=== PATIENT | male | born 1990 | race Caucasian/White ===

== ENCOUNTER 2021-04-25 09:11 | Emergency (ER) | payer MEDICAID, SELFPAY ==
--- NOTE | ~2021-04-25 | XR_ITS ---
EXAMINATION: XR CHEST CLINICAL INFORMATION: Palpitations COMPARISON: None TECHNIQUE: Frontal view of the chest was obtained. FINDINGS: No significant abnormality is noted involving the heart, lungs, mediastinum, bony thorax or soft tissues. XR/XR chest 1V IMPRESSION: Unremarkable examination.
--- NOTE | 2021-04-25 09:16 | ECG_ITS ---
Test Reason : DIZZINESS Blood Pressure : / mmHG Vent. Rate : 081 BPM Atrial Rate : 081 BPM P-R Int : 132 ms QRS Dur : 100 ms QT Int : 370 ms P-R-T Axes : 032 026 041 degrees QTc Int : 429 ms Normal sinus rhythm Incomplete right bundle branch block Borderline ECG No previous ECGs available Referred By: Yolanda Gregory Electronically Signed By:KARINA ROMANO
[2021-04-25 09:17] VITALS: BP 141/86; PULSE 113; RESP 18; TEMP 36.6; O2SAT 98; BMI 22.8
--- NOTE | 2021-04-25 09:19 | ED_ITS ---
HPI - Arrhythmia/Palpitations General Chief Complaint: Dizziness Stated Complaint: Rapid Heartrate Time Seen by Provider: 04/25/21 09:16 Source: patient Mode of arrival: ambulatory Limitations: no limitations History of Present Illness HPI narrative: rapid response called he told lab staff his HR was up and they found it to be 150 called RR complaint: rapid heart beat and palpitations Onset (ago): minute(s) Duration: constant Severity: moderate Context: other (pulled his back out at work today on R side when lifting, he was sent to work connection by his boss - got lost in hospital since work connection is closed, became nervous and felt his HR was up - hx of daily drinking, no CP/SOB) Associated symptoms: nausea and anxiety Related Data Previous Rx's Medication Instructions Recorded cyclobenzaprine 10 mg tablet 10 mg PO TID PRN #14 tab 04/25/21 ibuprofen 600 mg tablet 600 mg PO Q6H PRN #30 tab 04/25/21 lidocaine 4 % topical patch 1 patch TOPICAL DAILY PRN #10 ea 04/25/21 Allergies Allergy/AdvReac Type Severity Reaction Status Date / Time No Known Allergies Allergy Verified 04/25/21 09:16 Review of Systems Review of Systems: Constitutional : No Weight loss, No Fever, No Chills, No Fatigue, No Malaise ENT/Mouth : No sore throat, No Rhinorrhea Eyes: No Eye Pain, No Swelling, No Redness Cardiovascular : No Chest Pain, No SOB, No Dyspnea on Exertion, No Orthopnea, No Edema, pos Palpitations Respiratory : No Cough, No Sputum, No Wheezing Gastrointestinal : No Nausea, No Vomiting, No Diarrhea, No Constipation, No abdominal Pain, No Hematochezia, No Melena Genitourinary : No Dysuria, No Urinary Frequency, No Hematuria, Musculoskeletal : No joint pain, No Myalgias, No Joint Swelling, pos back pain Skin : No Skin Lesions, No rash Neuro : No Weakness, No Numbness, No Dizziness, No Headache Psych : pos Anxiety/Panic, No Depression Heme/Lymph: No Bruising, No Bleeding,No Lymphadenopathy Endocrine : No Polyuria, No Polydipsia All other systems reviewed and are negative [facility] Past Medical History Attestation statement: The following information was validated with the patient. Medical History (Updated 04/25/21 @ 11:27 by Yolanda Gregory DO) Anxiety Social History Social History (Updated 04/25/21 @ 09:22 by Yolanda Gregory DO) Alcohol intake: current Patient Tobacco Use Status: Tobacco use Unknown Advance Directives: No Advance Directives Information Provided: No Physical Exam Vital Signs: Vital Signs: Last Vital Signs Temp 97.8 F 04/25/21 09:17 Pulse 113 H 04/25/21 09:17 Resp 18 04/25/21 09:17 BP 141/86 H 04/25/21 09:17 Pulse Ox 98 04/25/21 09:17 Body Mass Index 22.8 Appearance: Alert. Oriented X3. No acute distress. Anxious Eyes: Pupils equal, round and reactive to light. ENT: Pharynx normal. Neck: Normal inspection. Neck supple. CVS: tachycardic heart rate and rhythm. Pulses normal. Respiratory: No respiratory distress. Breath sounds normal. Abdomen: Soft and nontender. Back: ttp along R paraspinal Skin: Skin warm and dry. Normal skin color. Normal skin turgor. Extremities: No lower extremity edema. No calf ttp Neuro: Oriented X 3. No motor deficit. No sensory deficit. Course Course Course Narrative: suspect more anxiety related at this time, HR down until you talk to him, will continue to observe feels better stable for DC MDM - Arrhythmia/Palpitations MDM Narrative Medical decision making narrative: 30 yo male with palpitations - did have R back strain at work today - at this time likely multifactorial could be pain, ETOH withdrawal, anxiety - labs, EKG, IV ativan and fluids ordered, dispo per results and findings. Lab Data Result diagrams: 04/25/21 09:37 04/25/21 09:37 Labs: Lab Results 04/25/21 04/25/21 04/25/21 Range/Units 09:37 09:37 09:37 WBC 5.6 (4.8-10.8) X10*3/uL RBC 4.62 (4.60-5.80) X10*6/uL Hgb 15.3 (14.0-18.0) g/dl Hct 44.1 (42-52) % MCV 95.5 (80-98) fL MCH 33.1 H (27.0-33.0) pg MCHC 34.7 (31.0-36.0) g/dl RDW 12.2 (11.0-16.0) % Plt Count 364 (160-400) X10*3/uL MPV 8.6 L (9.4-12.4) fL Immature Gran % (Auto) 0.7 H (0.0-0.4) % Neut % (Auto) 52.3 (45-73) % Lymph % (Auto) 34.3 (20-40) % [place] % (Auto) 10.2 (2-11) % Eos % (Auto) 1.8 (0-4) % Baso % (Auto) 0.7 (0-2) % Lymph # (Auto) 1.9 (1.2-4.9) X10*3/uL [place] # (Auto) 0.6 (0.1-1.2) X10*3/uL Eos # (Auto) 0.1 (0.0-0.4) X10*3/uL Baso # (Auto) 0.0 (0.0-0.2) X10*3/uL Abs Immat Gran (auto) 0.04 H (0.00-0.03) X10*3/uL Absolute Neuts (auto) 2.9 (2.0-8.3) X10*3/uL Absolute Nucleated RBC 0.000 (0.0-0.012) X10*3/uL Nucleated RBC % (auto) 0.0 (0.0-0.2) /100WBC Sodium 140 (135-145) mmol/L Potassium 3.5 (3.3-5.1) mmol/L Chloride 103 (96-108) mmol/L Carbon Dioxide 21 L (22-29) mmol/L Anion Gap 20 (12-20) BUN 13 (9-16) mg/dL Creatinine 0.93 (0.5-1.4) mg/dL Estim Creat Clear Calc 113.3 Estimated GFR > 60 Random Glucose 96 (60-115) mg/dL Calcium 9.3 (8.4-10.2) mg/dL Magnesium 1.9 (1.6-2.6) mg/dL Total Bilirubin 0.8 (0.0-1.0) mg/dL Direct Bilirubin 0.3 (0.0-0.5) mg/dL AST 37 (5-37) U/L ALT 45 H (0-40) U/L Alkaline Phosphatase 70 (39-117) U/L Total Protein 7.3 (6.5-8.0) g/dL Albumin 4.9 (3.5-5.0) g/dL Lipase 21 (8-78) U/L COVID-19 (CHRISTY) Negative (Negative) COVID-19 Clin Com See Note ECG Data Attestation: I personally reviewed and interpreted this ECG as follows: ECG interpretation date: 04/25/21 ECG interpretation time: 10:21 Interpretation: Rate: 81 Rhythm: NSR Clear: normal Normal P waves. Normal STEFANIE. incomplete RBBB ST T wave : normal qTC: normal prior studies: no acute ischemia The study has been interpreted contemporaneously by me. . Discharge Plan Discharge Clinical Impression: Heart palpitations Back strain Qualifiers: Encounter type: initial encounter Qualified Code(s): S39.012A - Strain of mus enzo, fascia and tendon of lower back, initial encounter Patient Disposition: Home, Self-Care Instructions: Heart Palpitations (ED), Back Pain (ED) Additional Instructions: return to ED for any worsening symptoms or concerns Prescriptions: New cyclobenzaprine 10 mg tablet 10 mg PO TID PRN (Reason: muscle spasm) Qty: 14 RF: 0 lidocaine 4 % adhesive patch,medicated 1 patch topical DAILY PRN (Reason: pain) Qty: 10 RF: 0 ibuprofen 600 mg tablet 600 mg PO Q6H PRN (Reason: pain) Qty: 30 RF: 0 Referrals: Ronnie Alexander MD [Physician] - 2 days (call Tuesday) Stand Alone Forms: Work/School Release
[2021-04-25 09:40] LABS: MANUAL DIFF FLAG NO
[2021-04-25] MEDS: LORazepam 2 MG/ML VIAL 1 MG IVPUSH (09:40)
[2021-04-25] MEDS: 0.9 % Sodium Chloride 1,000 ML 999 ML IVCONT (09:41)
[2021-04-25 09:42] LABS: Basophils Percent Auto 0.7 % (0-2); Eosinophils Absolute Auto 0.1 X10*3/uL (0.0-0.4); Eosinophils Percent Auto 1.8 % (0-4); Hematocrit 44.1 % (42-52); Hemoglobin 15.3 g/dl (14.0-18.0); Imm Gran Abs Auto 0.04 X10*3/uL (0.00-0.03); Imm Gran Pct Auto 0.7 % (0.0-0.4); Lymphocytes Absolute Auto 1.9 X10*3/uL (1.2-4.9); Lymphocytes Percent Auto 34.3 % (20-40); Mean Corpuscular HGB Conc 34.7 g/dl (31.0-36.0); Mean Corpuscular Hemoglobin 33.1 pg (27.0-33.0); Mean Corpuscular Volume 95.5 fL (80-98); Mean Platelet Volume 8.6 fL (9.4-12.4); Monocytes Absolute Auto 0.6 X10*3/uL (0.1-1.2); Monocytes Percent Auto 10.2 % (2-11); Neutrophils Absolute Auto 2.9 X10*3/uL (2.0-8.3); Neutrophils Percent Auto 52.3 % (45-73); Platelet Count 364 X10*3/uL (160-400); Red Blood Count 4.62 X10*6/uL (4.60-5.80); Red Cell Distribution Width 12.2 % (11.0-16.0); White Blood Count 5.6 X10*3/uL (4.8-10.8)
[2021-04-25 09:57] LABS: COVID-19 Test Negative (Negative)
[2021-04-25 10:01] LABS: Alanine Aminotransferase 45 U/L (0-40); Albumin Level 4.9 g/dL (3.5-5.0); Alkaline Phosphatase 70 U/L (39-117); Anion Gap 20 (12-20); Aspartate Amino Transferase 37 U/L (5-37); Bilirubin Direct 0.3 mg/dL (0.0-0.5); Bilirubin Total 0.8 mg/dL (0.0-1.0); Blood Urea Nitrogen 13 mg/dL (9-16); Calcium 9.3 mg/dL (8.4-10.2); Carbon Dioxide 21 mmol/L (22-29); Chloride 103 mmol/L (96-108); Creatinine Clr Calc Pharmacy 113.3; Estimated Glomerular Filt Rate > 60; Glucose Random 96 mg/dL (60-115); Lipase 21 U/L (8-78); Magnesium 1.9 mg/dL (1.6-2.6); Potassium 3.5 mmol/L (3.3-5.1); Sodium 140 mmol/L (135-145); Total Protein 7.3 g/dL (6.5-8.0)
== END 2021-04-25 11:57 | disposition home or self-care (01) ==
PROVIDERS: Emergency Provider Emergency Medicine
DX: R42 Dizziness and giddiness (principal); R00.2 Palpitations; M54.5 Low back pain; Z20.822 Contact with and (suspected) exposure to COVID-19; Z79.899 Other long term (current) drug therapy
CPT/HCPCS: 36415; 71045; 80048; 80076; 83690; 83735; 85025; 87635; 93005; 96361; 96374; 99283; 99284; J2060

== ENCOUNTER 2023-09-29 14:41 | Outpatient (AMB) | payer OTHER, SELFPAY ==
--- NOTE | 2023-09-29 14:50 | AM.OFFWIN_ITS ---
Intake Vital Signs 09/29/23 14:54 Height 5 ft 9 in Weight 160 lb BMI 23.6 BP 112/74 Blood Pressure Location Lt brachial Position Sitting Pulse 112 H Pulse Source Pulse Oximeter Temp 99.7 F Temp Source Oral Pulse Oximetry (%) 98 Oxygen Delivery Method Room Air Intake Visit Reasons: EP Fatigue, chills, Dry Throat, Cough Intake Note: pt is here for c.o fatigue, chills, cough since yesterday Patient Tobacco Use Status: Tobacco use Unknown Allergies No Known Allergies Allergy (Verified 09/29/23 14:54) Do you need a note to return to daycare/school/sports/work: Yes HPI HPI Comments History of Present Illness Details 32 y/o male patient who presents to walk in clinic with c/o fatigue, malaise, low grade fevers, headaches and chills. Reports that symptoms started today. Dad and family members with COVID at home. Reports eating and drinking well. Reports sleeping well too. He has not taken any OTc medications. [facility] Medical History (Updated 04/26/21 @ 00:01 by Tavia Tovar) Anxiety Social History (Updated 04/25/21 @ 09:22 by Donita Gregory DO) Alcohol intake: current Patient Tobacco Use Status: Tobacco use Unknown Review of Systems Const All systems reviewed & are unremarkable except as noted in HPI and below Physical Exam Vital Signs: Last Vital Signs Temp 99.7 F 09/29/23 14:54 Pulse 112 H 09/29/23 14:54 BP 112/74 09/29/23 14:54 Pulse Ox 98 09/29/23 14:54 Oxygen Delivery Method Room Air 09/29/23 14:54 BMI result Body Mass Index 23.6 Const General: comfortable and no acute distress HEENT Head: Yes normocephalic and Yes atraumatic Ears: external ears normal and TM's normal bilaterally General nose exam: Abnormal mucous membranes and turbinates present boggy and erythematous Face and sinus: Yes sinuses nontender Mouth: moist mucous membranes Throat: Yes posterior oropharynx normal Resp Effort & Inspection: normal respiratory effort and able to speak in complete sentences Auscultation: clear to auscultation bilaterally Cardio Rate: regular rate Rhythm: regular rhythm Assessment & Plan Assessment & Plan (1) Upper respiratory infection: Code(s): J06.9 - Acute upper respiratory infection, unspecified Qualifiers: URI type: unspecified viral URI Qualified Code(s): J06.9 - Acute upper respiratory infection, unspecified Plan: - Warm fluids with honey - Rest - Inhaler for SOB - Acetaminophen for pain relief - SARs Orders: Orders SARS-CoV2/FLU/RSV Today J06.9 - Acute upper respiratory infection, unspecified Medications: New albuterol sulfate 90 mcg/actuation 2 puffs inhalation Q4-6H PRN 6.7 grams 0RF shortness of breath or wheezing J06.9 - Acute upper respiratory infection, unspecified acetaminophen 1,000 mg (2 x 500 mg) PO Q6H PRN 30 caps 0RF fever J06.9 - Acute upper respiratory infection, unspecified Coding Level of Care Code Est Pt Level 3 (46667) Diagnoses Viral upper respiratory tract infection J06.9 URI type: unspecified viral URI Time Spent (min) 15
[2023-09-29 14:54] VITALS: BP 112/74; PULSE 112; TEMP 37.6; O2SAT 98; BMI 23.6
== END 2023-09-29 15:57 | disposition home or self-care (01) ==
PROVIDERS: PCP Nurse Practitioner Family; Visit Provider Nurse Practitioner Family
DX: J06.9 Acute upper respiratory infection, unspecified (principal)
CPT/HCPCS: 99213

== ENCOUNTER 2023-09-29 14:41 | Outpatient (REF) | payer OTHER, SELFPAY ==
[2023-09-30 11:48] LABS: Influenza A PCR NEGATIVE (Negative); Influenza B PCR NEGATIVE (Negative); Resp Syncy Virus RNA Qual PCR NEGATIVE (Negative); SARS COV2 PCR INHOUSE NEGATIVE (Negative)
== END 2023-09-29 14:42 | disposition home or self-care (01) ==
LOC: HO.HMGCLNP 14:41
PROVIDERS: Visit Provider Nurse Practitioner Family
DX: Z11.52 Encounter for screening for COVID-19 (principal); Z20.822 Contact with and (suspected) exposure to COVID-19; J06.9 Acute upper respiratory infection, unspecified
CPT/HCPCS: 0241U

== ENCOUNTER 2023-09-29 15:24 | Outpatient (REF) | payer OTHER, SELFPAY | END 2023-09-29 15:25 | disposition home or self-care (01) | LOC: HO.LAB 15:24 | PROVIDERS: Visit Provider Nurse Practitioner Family | DX: Z13.89 Encounter for screening for other disorder (principal) ==

== ENCOUNTER 2025-01-22 06:06 | Emergency (ER) | payer OTHER, SELFPAY ==
[2025-01-22 06:09] VITALS: BP 137/90; PULSE 87; RESP 16; TEMP 36.3; O2SAT 98; BMI 23.3
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
[2025-01-22] MEDS: Lidocaine 4 % Patch ADH..PATCH 1 PATCH TRANSDERMA (06:40)
[2025-01-22] MEDS: Ketorolac Tromethamine 15 MG/ML VIAL IM (06:42)
[2025-01-22] MEDS: dexAMETHasone 2 MG TABLET 10 MG PO (06:42)
[2025-01-22 07:02] VITALS: BP 131/88; PULSE 90; RESP 18; TEMP 36.6; O2SAT 99
== END 2025-01-22 07:07 | disposition home or self-care (01) ==
LOC: HO.ED 07:04
PROVIDERS: Emergency Provider Emergency Medicine
DX: S13.4XXA Sprain of ligaments of cervical spine, initial encounter (principal); V43.52XA Car driver injured in collision with other type car in traffic accident, initial encounter; M54.6 Pain in thoracic spine; Y93.89 Activity, other specified; Y92.414 Local residential or business street as the place of occurrence of the external cause; Y99.9 Unspecified external cause status
CPT/HCPCS: 96372; 99283; 99284; J1885; J8540

== ENCOUNTER 2025-02-23 10:57 | Outpatient (AMB) | payer OTHER, SELFPAY ==
--- OUTSIDE RECORDS SUMMARY | 2015-09-04 09:55 | XMS_ITS | Continuity of Care Document ---
Author Organization [facility] Address [address] [address] Phone Care Team Providers Care Ticket Speculator Name Role Phone Unavailable Unavailable Unavailable Allergies, Adverse Reactions, Alerts Substance Reaction Status Criticality No Known Allergies Active No Inform ation Medications Medication Instructions Dosage Effective Dates (start - stop) Status Comments meclizine 25 mg tablet take 1 tablet by oral route 3 times every day as needed 25 MG - No Longer Active Procedures Procedure Date Desk Payment Ophth Serv: Med Exam; Comp New Advance Directives Directive Yes / No Effective Date File Name No Information Encounters Encounter Description Practice Location Reason(s) For Visit Diagnoses Date Provider Providers Copied on Encounter [facility], [address], [id number], tel:[phone] [facility] Static (chief complaint) Floaters and flashes (chief complaint) HeadacheTear film insufficiency of bilateral lacrimal glands [address] [facility], [address] [place] [address], [id number], tel:[phone] [facility] Floaters and flashes (chief complaint) Vitreous floatersOcular migraine 5 No Information Family History Family Member Type Diagnosis Age At Onset No Information Payers Payer name Insurance type Covered democrat ID Authoriza tion(s) No Information Social History Type Description Quantity Date Captured Comments Alcohol Use Details Unknown Caffeine Use Details Unknown Jayme-28-2016 Tobacco Use Status No Information Smoking Status Former smoker Non-Smoking Tobacco Use Details : No Details Available : No Details Available Sex Male Chief Complaint And Reason For Visit From encounter dated '09/04/2015 13:55'. Static (chief complaint). Description: Patient complains of seeing static when waking up from sleeping or when he's dozing off, and says it always happens when its dark outside. Patient states it started to happen 2-3 weeks ago, but over the past 3-4 days it has gotten a lot worse. Patient states that his vision is completly gone when he see's the static and it takes 5-10 seconds for his vision to return. Floaters and flashes (chief complaint). Description: Patient complains of flashes and floater OU. Patient states that around 2 months ago when he's staring at something like the ceiling he starts to see rain drops cover his vision. Patient states that he sees the flashes almost always when he is sleeping. Cat Scan 1 yr ago and MRI done 1.5 weeks ago and that was normal sh owing no tumor. Pt now will be seen by a neurologist. Reason For Referral Reason For Referral No Information History Of Present Illness Encounter Date Complaint History Of Prese nt Illness Floaters and flashes Patient com plains of flashes and floater OU. Patient states that around 2 months ago when he's staring at something like the ceiling he starts to see rain drops cover his vision. Patient states that he sees the flashes almost always when he is sleeping. Cat Scan 1 yr ago and MRI done 1.5 weeks ago and that was normal showing no tumor. Pt now will be seen by a neurologist. Static Patient complain s of seeing static when waking up from sleeping or when he's dozing off, and says it always happens when its dark outside. Patient states it started to happen 2-3 weeks ago, but over the past 3-4 days it has gotten a lot worse. Patient states that his vision is completly gone when he see's the static and it takes 5-10 seconds for his vision to return. Floaters and flashes The 24 year old male presents for evaluation of floaters and flashes OU x 1 wk. Pt notes increased floaters x 1 wk. Pt notes that he has always had clear floaters, but now they are black and there are more. Pt states that he see blinking red flashes when his eye are closed. Pt states blurry va OU intermittent. Pt notes h/o Vertigo.Pt sees flashing also at times for a week. Functional Status Date Functional Assessmen t No Information Instructions Date Instruction Additional Infor matochoa Return in 1 year wit Leah Barrera OD for Established Patient Long. Related to Tear film insufficiency of bilateral lacrimal glands Impression/Plan - T ears 2-4 times daily Related to Tear film insufficiency of bilateral lacrimal glands Impression/Plan - P t to follow up neurologist Dr. Patel [place] scheduled early this September 16. Pt to take a copy of the visual field with him to neurologist to review. Related to Headache Follow up - Return in 1 year with Leah Perales OD for Established Patient Long. Related to Tear film insufficiency of bilateral lacrimal glands - HVF 30-2 both eyes Related to Ocular migraine - Baseline HVF 30-2 both eyes Re lated to Vitreous floaters - Return in 2-3 Week s with Leah Perales OD for PVD/Floaters Check OU Related to Vitreous floaters Assessments Type Assessment Date assessment Headache impression Headache: R51 impression Tear film insufficiency of bilat eral lacrimal glands: H04.123 assessment Tear film insufficiency of bilat eral lacrimal glands Patient Care Teams Name Effective Dates (start - stop) Status Members No Information
[2025-02-23 10:58] VITALS: BP 114/80; PULSE 91; RESP 16; TEMP 36.9; O2SAT 98; BMI 23.2
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
--- OUTSIDE RECORDS SUMMARY | 2025-02-23 10:59 | XMS_ITS | Clinical Summary ---
Author Organization [facility] [address] [place] [address] [address], [place] Phone Care Team Providers Care Fish Seiner Name Role Phone Enedelia Vázquez MD Primary Care Provider [phone] Encounters Date Type Department Care Team Description 01/02/2025 Telephone Adult Medicine [address] [phone] Enedelia Vázquez MD new patient (Booked incorrectly via my chart with Dr Vázquez 01/02 at 1pm , pt was called and notified Dr Vázquez not taking new patients since February, Advised will send to weekend receptionist to contact and discuss) from Last 3 Months Social History Tobacco Use Types Packs/Day Years Used Date Smoking Tobacco: Never Assessed Housing Instability Answer Date Recorde d Are you worried that in the next 2 months you may not have stable housing? No 12/29/2024 Food Access & Nutrition Answer Date Rec orded Do you have access to a vari ety of food including fruits and vegetables? Yes 12/29/2024 Access to Healthcare Answer Date Record ed Within the last 3 months, ho w many times did you visit the emergency department for your medical care? 0 12/29/2024 Health Literacy Answer Date Recorded How often do you need to hav e someone help you when you read instructions, pamphlets, or other written material from your doctor or pharmacy? Never 12/29/2024 Caregiver: How often do you need to have someone help you when you read instructions, pamphlets, or other written material from your doctor or pharmacy? Not on file 12/29/2024 Financial Risk Answer Date Recorded How hard is it for you to pa y for the very basics like food, housing, medical care, and air conditioning / heating? Not very hard 12/29/2024 Transportation Answer Date Recorded Has the lack of transportati on kept you from meetings, work, or from getting things needed for daily living? No Has the lack of transportati on kept you from medical appointments or from getting medications? No 12/29/2024 Social Isolation Answer Date Recorded How often do you feel lonely or isolated from th ose around you? Rarely 12/29/2024 Food Risk Answer Date Recorded Within the past 12 months we worried whether our food would run out before we got money to buy more. Never true 12/29/2024 Within the past 12 months th e food we bought just didn't last and we didn't have money to get more. Never true 12/29/2024 Dependent Care Answer Date Recorded Do you need help finding or paying for care for your loved ones. For example, director of early childhood or elderly care for an older adult? No 12/29/2024 Education Answer Date Recorded Do you think completing more education or training, like finishing a GED, going to college, or learning a trade, would be helpful for you? Yes 12/29/2024 Employment and Income Answer Date Recor ded During the last four weeks, have you been actively looking for work? No 12/29/2024 Living Situation Answer Date Recorded What is your living situation? 0 12/29/2024 Sex and Gender Information Value Date Recorded Sex Assigned at Not on file Legal Sex Male 7:44 AM EST Gender Identity Not on file Sexual Orientation Not on file Plan of Treatment Health Maintenance Due Date Last Done Comments DTaP,Tdap,and Td Vaccines (1 - Tdap) 12/26/2007 Hepatitis B Vaccines (1 of 3 - 19+ 3-dose series) 12/26/2007 COVID-19 Vaccine ( - 2023-2 5 season) 2024 Cholesterol Screening (Lipid Panel) 09/06/2024 HIV Screening 09/06/2024 Hepatitis C Screening 09/06/2024 Influenza Vaccine (#1) 2025 Depression Screening 12/29/2025 12/29/2024 Social Influencers of Health Screening 12/29/2025 12/29/2024 HIB Vaccines Aged Out No longer eligi ble based on patient's age to complete this topic HPV Vaccines Aged Out No longer eligi ble based on patient's age to complete this topic Hepatitis A Vaccines Aged Out No long er eligible based on patient's age to complete this topic IPV Vaccines Aged Out No longer eligi ble based on patient's age to complete this topic MMR Vaccines Aged Out No longer eligi ble based on patient's age to complete this topic Meningococcal ACWY Vaccine Aged Out N o longer eligible based on patient's age to complete this topic Meningococcal B Vaccine Aged Out No l onger eligible based on patient's age to complete this topic Pneumococcal Vaccine: Pediat rics (0 to 5 Years) and At-Risk Patients (6 to 49 Years) Aged Out No longer eligi ble based on patient's age to complete this topic RSV Immunization Patients Un slime 20 months Aged Out No longer eligible b ased on patient's age to complete this topic Varicella Vaccines Aged Out No longer eligible based on patient's age to complete this topic Insurance [facility] Care Teams Fish Seiner Relationship Specialty Start Date End Date Enedelia Vázquez MD [address] [place] [id number] PCP - General Internal Medicine 09/28/24
== END 2025-02-23 11:21 | disposition home or self-care (01) ==
LOC: HO.HMCWIC 10:57
PROVIDERS: Visit Provider Physician Assistant
DX: M67.912 Unspecified disorder of synovium and tendon, left shoulder (principal)